=== PATIENT | female | born 1995 | race Caucasian/White ===

== ENCOUNTER 2016-11-11 14:23 | Emergency (ER) | payer OTHER, MEDICAID ==
[2016-11-11] MEDS ORDERED: LET GEL TOPICAL 1 EA SYR TP ONE (15:01)
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
[2016-11-11 17:23] VITALS: BP 110/80; PULSE 78; RESP 20; TEMP 98.6; O2SAT 96
== END 2016-11-11 17:22 | disposition home or self-care (01) ==
DX: S50.311A Abrasion of right elbow, initial encounter (principal); S00.211A Abrasion of right eyelid and periocular area, initial encounter; S80.211A Abrasion, right knee, initial encounter; V18.0XXA Pedal cycle driver injured in noncollision transport accident in nontraffic accident, initial encounter; Y99.8 Other external cause status; Y93.89 Activity, other specified

== ENCOUNTER 2017-10-18 00:20 | Emergency (ER) | payer OTHER ==
--- NOTE | 2017-10-18 00:22 | EDPHY ---
H & P Time Seen by Provider: 10/18/17 00:22 HPI/ROS: HPI CHIEF COMPLAINT: Finger laceration HISTORY OF PRESENT ILLNESS: 22-year-old female, she is otherwise healthy, presents emergency room with a finger laceration to the 3rd digit on the left hand. She states she was cutting an avocado in the knife slipped. This caused her to have a very small less than 2 cm very superficial laceration to the distal aspect of the 3rd digit on the left hand. Dorsal side. Does not involve arterial tendon vomit. No bony involvement. This will be amenable to gluing. Past Medical History: No significant medical history Past Surgical History: No significant surgical Social History: Lives locally denies daily use drugs alcohol tobacco. Family History: Noncontributory ROS REVIEW OF SYSTEMS: A comprehensive 10 point review of systems is otherwise negative aside from elements mentioned in the history of present illness. Exam Constitutional appears well nontoxic triage nursing summary reviewed, vital signs reviewed, awake/alert. Eyes normal conjunctivae and sclera, EOMI, PERRLA. HENT normal inspection, atraumatic, moist mucus membranes, no epistaxis, neck supple/ no meningismus, no raccoon eyes. Respiratory clear to auscultation bilaterally, normal breath sounds, no respiratory distress, no wheezing. Cardiovascular rate normal, regular rhythm, no murmur, no edema, distal pulses normal. Gastrointestinal soft, non-tender, no rebound, no guarding, normal bowel sounds, no distension, no pulsatile mass. Genitourinary no CVA tenderness. Musculoskeletal no midline vertebral tenderness, full range of motion, no calf swelling, no tenderness of extremities, no meningismus, good pulses, neurovascularly intact. Skin left hand 3rd digit dorsal aspect distal aspect very small less than 2 cm superficial laceration, no bony involvement, no arterial involvement , no tendon involved, pink, warm, & dry, no rash, skin atraumatic. Neurologic awake, alert and oriented x 3, AAOx3, moves all 4 extremities equally, motor intact, sensory intact, CN II-XII intact, normal cerebellar, normal vision, normal speech. Psychiatric normal mood/affect. Heme/Lymph/Immune no lymphadenopathy. Differential Diagnosis: includes but is not limited to in a particular order, soft tissue injury, superficial laceration Medical Decision Making: Plan for this patient will clean her wound and then Dermabond glue her laceration closed. Return precautions discussed with her. She understands return emergency room if she develops further swelling, pain, fever, drainage. Glue will eventually fall off. She understands. Source: Patient - Medical/Surgical History Other PMH: anxiety - Social History Smoking Status: Never smoked Constitutional: Initial Vital Signs Temperature (C) 37.1 C 10/18/17 00:22 Heart Rate 98 10/18/17 00:22 Respiratory Rate 18 10/18/17 00:22 Blood Pressure 111/77 10/18/17 00:22 O2 Sat (%) 95 10/18/17 00:22 O2 Delivery Mode Room Air Allergies/Adverse Reactions: Penicillins Allergy (Unknown, Verified 10/18/17 00:24) Home Medications: Medication Instructions Recorded clonazePAM [Klonopin (*)] 0.5 mg PO PRN 11/11/16 Adderall 10 MG (*) 10/18/17 Departure - Departure Disposition: Home, Routine, Self-Care Clinical Impression: Laceration Condition: Good Instructions: Laceration (ED) Additional Instructions: 1. Keep the area protected clean and dry. 2. Watch for signs of infection. 3. The glue will fall off over the next week to 2 weeks. Referrals: NONE *PRIMARY CARE P,. [Primary Care Provider] - As per Instructions
[2017-10-18 00:25] VITALS: BP 111/77
[2017-10-18] MEDS ORDERED: SKIN ADHESIVE (DERMABOND) 1 EACH TP ONE (00:43)
== END 2017-10-18 01:06 | disposition home or self-care (01) ==
PROC: 0HQGXZZ Repair Left Hand Skin, External Approach (ICD-10-PCS; principal; 2017-10-18)
DX: S61.213A Laceration without foreign body of left middle finger without damage to nail, initial encounter (principal); W26.0XXA Contact with knife, initial encounter; Y99.8 Other external cause status; Y93.89 Activity, other specified

== ENCOUNTER 2017-12-27 15:02 | Emergency (ER) | payer OTHER ==
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
[2017-12-27 17:41] LABS: PLATELET COUNT 354 10^3/uL (150-400)
[2017-12-27 20:46] VITALS: BP 113/83
== END 2017-12-27 20:46 | disposition home or self-care (01) ==
DX: R41.0 Disorientation, unspecified (principal)
CPT/HCPCS: 80305; G0480